=== PATIENT | female | born 1995 | race African-American/Black ===

== ENCOUNTER 2021-10-14 10:19 | Emergency (ER) | payer OTHER ==
[~2021-10-14] VITALS: Ht 162.6 cm; Wt 115.7 kg
[2021-10-14] MEDS ORDERED: NAPROXEN 250 MG TAB PO STA (10:32)
[2021-10-14] MEDS ORDERED: IBUPROFEN 400 MG TAB PO STA (10:58)
[2021-10-14] MEDS ORDERED: NAPROSYN500 MG PO (11:06)
[2021-10-14] MEDS ORDERED: IBUPROFEN 400 MG TAB ONE (11:10)
== END 2021-10-14 11:15 | disposition home or self-care (01) ==
LOC: FSED 10:30
DX: M25.531 Pain in right wrist (principal); G56.01 Carpal tunnel syndrome, right upper limb
CPT/HCPCS: 99283

== ENCOUNTER 2022-03-08 18:44 | Emergency (ER) | payer OTHER ==
[~2022-03-08] VITALS: Ht 162.6 cm; Wt 112.0 kg
[~2022-03-08 18:44] MED LIST: NAPROSYN500 MG PO
[2022-03-08] MEDS ORDERED: AMOXICILLIN500 MG PO (19:48)
[2022-03-08 20:06] VITALS: BP 135/73
== END 2022-03-08 20:05 | disposition home or self-care (01) ==
LOC: FSED 18:54
DX: R05.9 Cough, unspecified (principal); J02.0 Streptococcal pharyngitis; H92.01 Otalgia, right ear
CPT/HCPCS: 99283